=== PATIENT | female | born 1940 | race Caucasian/White ===

== ENCOUNTER 2016-10-10 14:00 | Outpatient (RCR) | payer MEDICARE, OTHER ==
--- NOTE | 2016-08-11 11:52 | PT/OT/ST INITIAL EVALUATION ---
Department of Health and Human Services Form Approved Health Care Financing Administration OMB No. [id number] PLAN OF CARE/ASSESSMENT FOR OUTPATIENT REHABILITATION (Complete for Initial Claims Only) 1. LAST NAME Angelia FIRST NAME [facility] INITIAL 2. ACC # [id number] 3. [facility] [id number] 4. PROVIDER NO. [id number] 5. TYPE: X PT 6. PRIOR THERAPY (Same condition) None 7. PRIMARY DX Leg cramps 8. SECONDARY DX Leg pain 9. ONSET DATE One week ago 10. REFERRAL DATE 08/03/2016 11. SOC. DATE/TIME 08/09/2016 13:00 12. PRIOR LEVEL OF FUNCTION; PERTINENT HISTORY (Prior therapy results, reason for referral.) S: The patient was referred to physical therapy by Dr. Lyle Gonzalez with the diagnosis of leg pain and leg cramping. The patient reports the symptoms began approximately 7 to 8 days ago. She notes that she simply woke up with pain and tightness at her inner thighs. The patient also had pain behind both knees and at the outside of her right knee. The patient does not know of any injury or cause for the pain. The patient notes that she is having some difficulty getting around and decreased overall balance. She notes with going down steps, she has to take steps one step at a time. The patient notes the symptoms have lessened over the last week. 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 Overall health rating: Rates overall health as good. Current pain rating is 5 to 7/10. Past medical history includes arthritis, bone fractures, allergies, stomach ulcers, hypertension, and thyroid problems. Medication: Included Tylenol. See attached sheet. The patient's goal for therapy is to find the problem and source and develop a way to deal with it. 13. INITIAL ASSESSMENT/SAFETY PRECAUTIONS/MEDICAL COMPLICATIONS (Level of function at start of care. Be specific, use objective measures, list problems.) O: APPEARANCE: The patient is an 78-year-old female. She demonstrates forward flexed posture, deep anterior pelvic tilt, decreased lumbar lordosis. Tightness is noted at her right glute and piriformis region. The patient's leg length and pelvic alignment were equal. RANGE OF MOTION/FLEXIBILITY: Trunk range of motion flexion 80%, extension 50%, rotation and side bending were normal. Lower extremity flexibility bilateral hamstrings 70 degrees. Single knee to chest normal limits. Piriformis flexibility minimally limited. STRENGTH: Bilateral hip flexion and abduction strength -right 4/5 manual muscle test, left 4+/5 manual muscle test. Knee flexion and extension were 5/5 manual muscle test bilaterally. Ankle dorsiflexion 5/5 manual muscle test. SPECIAL TESTS: The patient completed Lower Extremity Functional Index and self-scored 21/80. TODAY'S TREATMENT: Included initial evaluation followed by instruction of home exercise program for gentle flexibility and stabilization and strengthening exercises. 14. INITIAL POC: (Specify procedures, modalities, short and oil heaterman goals) A: The patient presents with mild limitations and flexibility and strength. PROGNOSIS: The patient is a good candidate for physical therapy due to motivation and willingness to complete exercises. GOALS: 1. The patient to be compliant with home exercise program in 2 weeks. 2. The patient to demonstrate improved hip strength in 4 weeks. 3. The patient to report improved steadiness and balance with normal daily activities in 4 weeks. 4. The patient to report a 20 point improvement in the Lower Extremity Functional Index score in 4 weeks. PLAN: The patient will be seen 2 times a week over the next 4 weeks. Treatment to include manual therapy and modalities to decrease pain and inflammation. We will progress the patient general strength, balance and gait activities as tolerated. 15. FUNCTIONAL LEVEL (End of claim period) 16. PHYSICIAN SIGNATURE ? ON FILE OR ENTER HERE: 17. DATE: I certify the need for these services furnished under this plan of care and if for partial hospitalization. 18. CERTIFICATION FROM THROUGH [id number]
[~2016-10-10 14:00] MED LIST: ALBU8CC INH; DIGO0.25 PO; DIGO250T PO; GEMF600T3 PO; GUAI600T45 PO; LEVO75TA6 PO; LORA10TA7 PO; OXYGEN; PANT40TA3 PO; SCR1T1 PO; WALKER; WRF2T PO; WRF3T PO; [UNRECOGNIZED DRUG - CODE] MC; [UNRECOGNIZED DRUG - OTHER]
== END 2016-10-16 13:18 | disposition home or self-care (01) ==
LOC: PT 14:00
PROVIDERS: ATTEND Family Medicine
DX: M79.605 Pain in left leg (principal); M79.604 Pain in right leg; R25.2 Cramp and spasm
CPT/HCPCS: 97110; 97112; 97161; G8978; G8979; G8980